=== PATIENT | female | born 1955 | race Caucasian/White ===

== ENCOUNTER → 2016-08-18 | Outpatient (CLI) | payer OTHER ==
[~2016-08-18] MED LIST: ASCO-63 PO; ASPI81TA28 PO; ATOR-26 PO; CALC-20 PO; CETI10TA84 PO; FISHOIL PO; MULT-506 PO; VITA1TAB4 PO
[2016-08-18 13:29] LABS: ESTIMATED AVERAGE GLUCOSE 128 mg/dl; HA1C FLAG Normal (Normal)
[2016-08-18 13:39] LABS: ALB/GLOB RATIO 1.3 (0.9-2); ALKALINE PHOSPHATASE 96 U/L (45-117); ALT/SGPT 27 U/L (12-78); AST/SGOT 15 U/L (15-37); BLOOD UREA NITROGEN 21 mg/dl (7-18); BUN/CREATININE RATIO 27.7 (10-20); CALCIUM 9.1 mg/dl (8.5-10.1); CARBON DIOXIDE 31 mmol/L (21-32); CHLORIDE 106 mmol/L (98-107); CREATININE 0.76 mg/dl (0.60-1.20); GLUCOSE 101 mg/dl (70-99); POTASSIUM 4.1 mmol/L (3.5-5.1); SODIUM 142 mmol/L (136-145); TRIGLYCERIDES 128 mg/dl (0-150); VERY LOW DENSITY LIPOPROT CALC 26 mg/dl
[2016-08-18 13:41] LABS: CHOLESTEROL 199 mg/dl (0-200); CHOLESTEROL/HDL RATIO 3.8; HDL CHOLESTEROL 52 mg/dl; LDL CHOLESTEROL CALCULATED 121 mg/dl
== END | disposition home or self-care (01) ==
LOC: C.LABPVFM 08:09
PROVIDERS: ATTEND Nurse Practitioner Family
DX: E78.5 Hyperlipidemia, unspecified (principal); R73.01 Impaired fasting glucose; R00.1 Bradycardia, unspecified

== ENCOUNTER → 2017-01-21 | Outpatient (CLI) | payer OTHER ==
--- NOTE | 2017-01-21 12:36 | MAMMOGRAPHY REPORT ---
BILATERAL DIGITAL SCREENING MAMMOGRAM WITH CAD: 01/21/2017 CLINICAL HISTORY: Routine screening. Patient has no complaints. TECHNIQUE: Bilateral CC and MLO views were obtained. Current study was also evaluated with a Compute r Aided Detection (CAD) system. COMPARISON: Comparison is made to exams dated: 01/20/2016 mammogram, 01/18/2015 mammogram, 01/20/2013 collin mogram, 02/12/2012 mammogram, 02/09/2011 mammogram, and 11/10/2010 mammogram - [facility] ter. BREAST COMPOSITION: There are scattered areas of fibroglandular density in both breasts. FINDINGS: There is a newly visualized 6 mm focal asymmetry in the 5:00 posterior left breast, for wh ich additional spot compression tomosynthesis views and possibly ultrasound are recommended. Possibl e architectural distortion in the superior middle one third of the left breast only seen on the MLO v iew. Although this could represent overlapping fibroglandular tissue, additional spot compression to this is views and possibly ultrasound are recommended. There are a few benign-appearing microcalcifications in the breasts. No other suspicious mass, fara ectural distortion or cluster of microcalcifications is seen. IMPRESSION: ACR BI-RADS CATEGORY 0: INCOMPLETE EVALUATION: NEED ADDITIONAL IMAGING EVALUATION The 6 mm focal asymmetry in the 5:00 posterior left breast, and possible architectural distortion in the superior left breast need additional evaluation. The patient will be called to schedule an appointment. Approximately 10% of breast cancers are not detected with mammography. A negative mammographic report should not delay biopsy if a clinically suggestive mass is present. Tayla Cintron M.D. ay/:01/21/2017 09:01:34 Machine Boss: Missy Vaz RT(R)(M)(BD), [facility] letter sent: Addl Imaging 0 BI-RADS Code: ACR BI-RADS Category 0: Incomplete Evaluation: Need Additional Imaging Evaluation
== END | disposition home or self-care (01) ==
LOC: C.MAMM 08:23
PROVIDERS: ATTEND Family Medicine
DX: Z12.31 Encounter for screening mammogram for malignant neoplasm of breast (principal); N64.89 Other specified disorders of breast

== ENCOUNTER → 2017-01-30 | Outpatient (CLI) | payer OTHER ==
--- NOTE | 2017-01-30 15:37 | MAMMOGRAPHY REPORT ---
UNILATERAL LEFT DIGITAL DIAGNOSTIC MAMMOGRAM TOMOSYNTHESIS AND TARGETED LEFT ULTRASOUND: 01/30/2017 CLINICAL HISTORY: Callback from screening mammogram for left breast asymmetry and possible left breas t architectural distortion. TECHNIQUE: Breast tomosynthesis in addition to standard 2D mammography was performed. Spot compress ion left CC and MLO 2-D and tomosynthesis images were obtained. COMPARISON: Comparison is made to exams dated: 01/21/2017 mammogram, 01/20/2016 mammogram, 01/18/2015 collin mogram, 01/20/2013 ultrasound, 01/20/2013 mammogram, and 02/12/2012 mammogram - [facility]. BREAST COMPOSITION: There are scattered areas of fibroglandular density in the left breast. FINDINGS: Spot compression views demonstrate a persistent oval circumscribed 6 mm mass within the le ft lower outer quadrant, best seen on the tomosynthesis images. When compared to prior exams, the ma ss was likely present on some of the prior exams including the MLO view from the 2009 and 2010 exams and the spot compression cc view from the 2009 exam. The previously described possible architectural distortion within the left superior breast on the MLO view effaces on the additional spot compressio n views and is consistent with benign fiber glandular tissue. Targeted ultrasound was performed of the left lower outer quadrant in the region of the mammographic mass. In the left breast at 4:00, approximately 8 cm from the nipple, there is an oval circumscribed anechoic mass with a few thin internal septations, measuring 5 x 3 x 4 mm. This corresponds with th e stable mammographic mass and is consistent with a benign cyst. No suspicious solid masses are evid ent. IMPRESSION: ACR BI-RADS CATEGORY 2: BENIGN, TARGETED ULTRASOUND ACR BI-RADS CATEGORY 2: BENIGN 1. Circumscribed mammographic mass in the left lower outer quadrant is likely stable dating back to the 2010 and 2009 exams, with a corresponding benign cyst seen on ultrasound. 2. The questionable left superior breast distortion effaces on the additional views, and is consiste nt with normal fibroglandular tissue. There is no mammographic or targeted sonographic evidence of malignancy. A 1 year screening mammogram is recommended. The patient has been verbally notified of the results. Approximately 10% of breast cancers are not detected with mammography. A negative mammographic report should not delay biopsy if a clinically suggestive mass is present. Daja Chappell M.D. ah/:01/30/2017 10:25:25 Hog Killer: Brynn TELLO(Liudmila)(M), [facility] letter sent: Normal 1/2 BI-RADS Code: ACR BI-RADS Category 2: Benign Ultrasound BI-RADS: ACR BI-RADS Category 2: Benign
== END | disposition home or self-care (01) ==
LOC: C.MAMM 09:25
PROVIDERS: ATTEND Nurse Practitioner Family
DX: Z00.00 Encounter for general adult medical examination without abnormal findings (principal); N63 Unspecified lump in breast; R92.8 Other abnormal and inconclusive findings on diagnostic imaging of breast

== ENCOUNTER → 2017-02-14 | Outpatient (CLI) | payer OTHER ==
[2017-02-14 12:52] LABS: ESTIMATED AVERAGE GLUCOSE 126 mg/dl; HA1C FLAG Normal (Normal)
[2017-02-14 13:50] LABS: ALKALINE PHOSPHATASE 87 U/L (45-117); ALT/SGPT 29 U/L (12-78); BLOOD UREA NITROGEN 18 mg/dl (7-18); BUN/CREATININE RATIO 21.5 (10-20); CALCIUM 9.3 mg/dl (8.5-10.1); CARBON DIOXIDE 30 mmol/L (21-32); CHLORIDE 105 mmol/L (98-107); CHOLESTEROL 184 mg/dl (0-200); CHOLESTEROL/HDL RATIO 4.2; CREATININE 0.82 mg/dl (0.60-1.20); GLUCOSE 98 mg/dl (70-99); HDL CHOLESTEROL 44 mg/dl; LDL CHOLESTEROL CALCULATED 94 mg/dl; POTASSIUM 4.1 mmol/L (3.5-5.1); SODIUM 142 mmol/L (136-145); TRIGLYCERIDES 231 mg/dl (0-150); VERY LOW DENSITY LIPOPROT CALC 46 mg/dl
[2017-02-14 13:52] LABS: ALB/GLOB RATIO 1.4 (0.9-2); AST/SGOT 18 U/L (15-37)
== END | disposition home or self-care (01) ==
LOC: C.LABPVFM 07:34
PROVIDERS: ATTEND Nurse Practitioner Family
DX: E78.5 Hyperlipidemia, unspecified (principal); R73.01 Impaired fasting glucose

== ENCOUNTER → 2017-07-10 | Outpatient (CLI) | payer OTHER | END | disposition home or self-care (01) | LOC: C.LABPVFM 10:18 | PROVIDERS: ATTEND Nurse Practitioner Family | DX: R31.9 Hematuria, unspecified (principal) ==

== ENCOUNTER → 2017-08-17 | Outpatient (CLI) | payer OTHER ==
[2017-08-17 11:07] LABS: ALBUMIN 4.2 gm/dl (3.4-5.0); ALT/SGPT 27 U/L (12-78); AST/SGOT 15 U/L (15-37); BLOOD UREA NITROGEN 20 mg/dl (7-18); CALCIUM 8.9 mg/dl (8.5-10.1); CARBON DIOXIDE 31 mmol/L (21-32); CREATININE 0.69 mg/dl (0.60-1.20); GLUCOSE 94 mg/dl (70-99); POTASSIUM 3.5 mmol/L (3.5-5.1); SODIUM 139 mmol/L (136-145)
[2017-08-17 11:10] LABS: ALKALINE PHOSPHATASE 79 U/L (45-117); CHOLESTEROL 177 mg/dl (0-200); LDL CHOLESTEROL CALCULATED 101 mg/dl; TOTAL PROTEIN 7.7 gm/dl (6.4-8.2)
== END | disposition home or self-care (01) ==
LOC: C.LAB1850 07:53
PROVIDERS: ATTEND Nurse Practitioner Family
DX: E78.5 Hyperlipidemia, unspecified (principal); R73.01 Impaired fasting glucose

== ENCOUNTER → 2018-02-12 | Outpatient (CLI) | payer OTHER ==
[2018-02-12 14:00] LABS: ALBUMIN 4.1 gm/dl (3.4-5.0); ALKALINE PHOSPHATASE 79 U/L (45-117); ALT/SGPT 28 U/L (12-78); AST/SGOT 20 U/L (15-37); BLOOD UREA NITROGEN 16 mg/dl (7-18); CALCIUM 9.4 mg/dl (8.5-10.1); CARBON DIOXIDE 30 mmol/L (21-32); CHOLESTEROL 200 mg/dl (0-200); CREATININE 0.78 mg/dl (0.60-1.20); GLUCOSE 102 mg/dl (70-99); LDL CHOLESTEROL CALCULATED 98 mg/dl; POTASSIUM 4.2 mmol/L (3.5-5.1); SODIUM 140 mmol/L (136-145); TOTAL PROTEIN 7.8 gm/dl (6.4-8.2)
== END | disposition home or self-care (01) ==
LOC: C.LABPVFM 07:53
PROVIDERS: ATTEND Nurse Practitioner Family
DX: E78.5 Hyperlipidemia, unspecified (principal); R73.01 Impaired fasting glucose

== ENCOUNTER → 2018-03-11 | Outpatient (CLI) | payer OTHER ==
[2018-03-11 13:16] LABS: HEMATOCRIT 41.2 % (37-47); HEMOGLOBIN 14.3 g/dL (12.0-16.0); MEAN CELL VOLUME 90.9 fL (80-100); MEAN CORPUSCULAR HEMOGLOBIN 31.6 pg (25-34); MEAN CORPUSCULAR HGB CONC 34.7 g/dl (32-36); MEAN PLATELET VOLUME 11.8 fL (7.4-10.4); PLATELET COUNT 233 K/uL (130-400); RED CELL DISTRIBUTION WIDTH CV 13.1 % (11.5-14.5); RED CELL DISTRIBUTION WIDTH SD 43.3 fL (36.4-46.3)
[2018-03-11 14:30] LABS: BLOOD UREA NITROGEN 18 mg/dl (7-18); CALCIUM 9.5 mg/dl (8.5-10.1); CARBON DIOXIDE 29 mmol/L (21-32); CREATININE 0.63 mg/dl (0.60-1.20); GLUCOSE 87 mg/dl (70-99); POTASSIUM 3.8 mmol/L (3.5-5.1); SODIUM 142 mmol/L (136-145)
== END | disposition home or self-care (01) ==
LOC: C.LAB1850 11:58
PROVIDERS: ATTEND Internal Medicine Cardiovascular Disease
DX: I49.3 Ventricular premature depolarization (principal)